=== PATIENT | female | born 1935 | race Caucasian/White ===

== ENCOUNTER 2023-01-13 18:04 | Inpatient (IN) ==
[2023-01-13] MEDS ORDERED: 0.9 % SODIUM CHLORIDE 1,000 ML IV ONE (18:36)
[2023-01-13] MEDS ORDERED: morphine 4 MG/ML VIAL IV ONE ×2 (18:36→19:44)
[2023-01-13] MEDS ORDERED: ONDANSETRON 4 MG/2 ML VIAL IV ONE (18:36)
[2023-01-13 19:24] LABS: POC Calcium, Ionized 1.2 (1.16-1.32); POC Creatinine 0.7 (0.6-1.2); POC Potassium 3.9 (3.3-5.1)
[2023-01-13 19:54] LABS: Basophils # (Auto) 0.03 K/mcL (0.00-0.30); Basophils % (Auto) 0.3 % (0.0-2.0); Eosinophils # (Auto) 0.04 K/mcL (0.00-0.70); Eosinophils % (Auto) 0.3 % (0.0-7.0); Hemoglobin 13.1 g/dL (11.2-15.7); Lymphocytes # (Auto) 0.84 K/mcL (1.50-4.80); Lymphocytes % (Auto) 7.3 % (15.5-49.0); Mean Cell Volume 94.1 fL (80.0-100.0); Mean Corpuscular HGB Conc 32.8 g/dL (31.0-36.0); Monocytes # (Auto) 0.71 K/mcL (0.10-0.90); Monocytes % (Auto) 6.2 % (1.0-12.0); Neutrophils % (Auto) 85.5 % (38.0-78.0); Platelet Count 263 K/mcL (140-440); RBC 4.25 M/mcL (3.59-5.38); Red Cell Distribution Width 13.6 % (11.5-14.5); WBC 11.5 K/mcL (4.5-11.0)
[2023-01-13 20:25] LABS: Appearance,Urine CLEAR (Clear); Bilirubin,Urine Negative (Negative); Color,Urine YELLOW; Culture Indicated,Urine No; Glucose,Urine (UA) Negative (Negative); Ketones,Urine Negative (Negative); Leukocyte Esterase,Urine Negative /uL (Negative); Nitrate,Urine Negative (Negative); Protein,Urine Negative (Negative); Specific Gravity,Urine 1.012 (1.000-1.035); Urine Blood Negative (Negative); Urobilinogen,Urine Negative
[2023-01-13] MEDS ORDERED: SENNOSIDES 1 TABLET PO PRN (20:53)
[2023-01-13] MEDS ORDERED: ACETAMINOPHEN 325 MG TABLET PO PRN (20:53)
[2023-01-13] MEDS ORDERED: POTASSIUM CHLORIDE 40 MEQ in DEXTROSE 5% IN WATER 500 ML IV PRN (20:53)
[2023-01-13] MEDS ORDERED: POLYETHYLENE GLYCOL 3350 17 GM PACKET PO PRN (20:53)
[2023-01-13] MEDS ORDERED: MAGNESIUM SULFATE 2 GM/50 ML BAG IV PRN (20:53)
[2023-01-13] MEDS ORDERED: POTASSIUM CHLORIDE 20 MEQ TABLET PO PRN ×2 (20:53)
[2023-01-13] MEDS ORDERED: ONDANSETRON 4 MG/2 ML VIAL IV PRN (20:53)
[2023-01-13] MEDS ORDERED: IPRATROPIUM/ALBUTEROL 3 ML AMPUL.NEB NEB PRN (20:53)
[2023-01-13] MEDS: DOCUSATE SODIUM 100 MG CAPSULE PO SCH (20:56)
[2023-01-13] MEDS ORDERED: HYDROcodone/APAP 5/325MG TABLET PO ONE (20:59)
[2023-01-13] MEDS ORDERED: ENALAPRILAT 1.25 MG/ML VIAL IV ONE (21:00)
[2023-01-13] MEDS: morphine 4 MG/ML VIAL IV PRN (21:05)
[2023-01-13] MEDS: 0.9 % SODIUM CHLORIDE 1,000 ML IV SCH ×2 (21:06→23:56)
[2023-01-13] MEDS: morphine 2 MG/ML VIAL ONE ×2 (21:07→22:39)
[2023-01-13] MEDS: ENALAPRILAT 1.25 MG/ML VIAL IV PRN (21:07)
[2023-01-13] MEDS: HYDROcodone/APAP 5/325MG TABLET PO PRN (21:08)
[2023-01-13] MEDS: 0.9 % SODIUM CHLORIDE 10 ML SYRINGE IV SCH (22:36)
[2023-01-14] MEDS: morphine 4 MG/ML VIAL IV PRN ×4 (02:07→20:34)
[2023-01-14] MEDS: 0.9 % SODIUM CHLORIDE 10 ML SYRINGE IV SCH ×3 (05:01→20:34)
[2023-01-14 07:12] LABS: Basophils # (Auto) 0.02 K/mcL (0.00-0.30); Basophils % (Auto) 0.3 % (0.0-2.0); Eosinophils # (Auto) 0.04 K/mcL (0.00-0.70); Eosinophils % (Auto) 0.6 % (0.0-7.0); Lymphocytes # (Auto) 1.22 K/mcL (1.50-4.80); Lymphocytes % (Auto) 16.8 % (15.5-49.0); Mean Cell Volume 99.7 fL (80.0-100.0); Mean Corpuscular HGB Conc 31.4 g/dL (31.0-36.0); Mean Platelet Volume 10.3 fL (8.8-12.5); Monocytes # (Auto) 0.98 K/mcL (0.10-0.90); Monocytes % (Auto) 13.5 % (1.0-12.0); Neutrophils % (Auto) 68.5 % (38.0-78.0); Platelet Count 224 K/mcL (140-440); RBC 3.51 M/mcL (3.59-5.38); Red Cell Distribution Width 14.1 % (11.5-14.5); WBC 7.3 K/mcL (4.5-11.0)
[2023-01-14 07:38] LABS: ALT/SGPT 12 U/L (<40); AST/SGOT 17 U/L (<32); Albumin 3.3 gm/dL (3.2-5.2); Albumin/Globulin Ratio 1.7 (1.0-2.3); Alkaline Phosphatase 68 U/L (39-117); Bilirubin,Direct < 0.2 mg/dL (0-0.3); Bilirubin,Total 0.3 mg/dL (0.1-1.0); Blood Urea Nitrogen 15 mg/dL (8-23); Carbon Dioxide 24 mmol/L (22-30); Chloride 110 mmol/L (96-108); Globulin 1.9 gm/dL (2.2-3.7); Glomerular Filtration Rate 82; Glucose 105 mg/dL (70-105); Lactate Dehydrogenase 164 U/L (135-225); Phosphorous 3.2 mg/dL (2.5-4.5); Triglycerides 61 mg/dL (<150); Uric Acid 3.5 mg/dL (2.5-8.0)
[2023-01-14] MEDS ORDERED: PROPOFOL 200 MG/20 ML VIAL IV ONE (07:54)
[2023-01-14] MEDS ORDERED: fentaNYL 100 MCG/2 ML VIAL IV ONE ×2 (07:54→09:41)
[2023-01-14] MEDS ORDERED: ROCURONIUM 10 MG/ML ML IV ONE (07:55)
[2023-01-14] MEDS ORDERED: ONDANSETRON 4 MG/2 ML VIAL ONE (08:15)
[2023-01-14] MEDS ORDERED: ceFAZolin 2 GM in DEXTROSE 5% IN WATER 50 ML IV SCH ×2 (08:30→09:30)
[2023-01-14] MEDS ORDERED: SCOPOLAMINE 1 PATCH PATCH TOPICAL PRN (08:30)
[2023-01-14] MEDS ORDERED: TRANEXAMIC ACID 1,000 MG/10 ML VIAL ONE (08:55)
[2023-01-14] MEDS ORDERED: SUGAMMADEX SODIUM 200 MG/2 ML VIAL IV ONE (09:08)
[2023-01-14] MEDS ORDERED: GLYCOPYRROLATE 0.2 MG/ML VIAL IV ONE (09:08)
[2023-01-14] MEDS ORDERED: METHOCARBAMOL 1,000 MG/10 ML VIAL IV PRN (09:13)
[2023-01-14] MEDS ORDERED: fentaNYL 100 MCG/2 ML VIAL IV PRN (09:13)
[2023-01-14] MEDS ORDERED: LABETALOL 5 MG/ML ML IV PRN (09:13)
[2023-01-14] MEDS ORDERED: HYDROmorphone 0.5 MG/0.5 ML SYRINGE IV PRN (09:13)
[2023-01-14] MEDS ORDERED: ACETAMINOPHEN 1,000 MG/100 ML BAG IV ONE (09:13)
[2023-01-14] MEDS ORDERED: ONDANSETRON 4 MG/2 ML VIAL IV PRN (09:13)
[2023-01-14] MEDS ORDERED: NALOXONE HCL 0.4 MG/ML VIAL IV PRN (09:13)
[2023-01-14] MEDS ORDERED: IPRATROPIUM/ALBUTEROL 3 ML AMPUL.NEB NEB PRN (09:13)
[2023-01-14] MEDS ORDERED: FLEETS ADULT ENEMA PR PRN (09:20)
[2023-01-14] MEDS ORDERED: BENZOCAINE/MENTHOL 1 LOZENGE PO PRN (09:20)
[2023-01-14] MEDS ORDERED: BISACODYL 10 MG SUPP.RECT PR PRN (09:20)
[2023-01-14] MEDS ORDERED: DEXMEDETOMIDINE HCL 200 MCG/2 ML VIAL ONE (10:12)
[2023-01-14] MEDS: 0.9 % SODIUM CHLORIDE 1,000 ML IV SCH (12:19)
[2023-01-14] MEDS: DOCUSATE SODIUM 100 MG CAPSULE PO SCH ×2 (12:19→20:34)
[2023-01-14] MEDS: LEVOTHYROXINE 100 MCG TABLET PO SCH (12:19)
[2023-01-14] MEDS: SERTRALINE 100 MG TABLET PO SCH (12:19)
[2023-01-14] MEDS: ceFAZolin 1 GM VIAL IV SCH (15:20)
[2023-01-15] MEDS ORDERED: OLANZapine 5 MG TABLET PO PRN (00:02)
[2023-01-15] MEDS: ceFAZolin 1 GM VIAL IV SCH (00:08)
[2023-01-15] MEDS ORDERED: OLANZapine 2.5 MG TABLET PO ONE ×2 (01:18→01:23)
[2023-01-15] MEDS: morphine 4 MG/ML VIAL IV PRN ×3 (01:30→20:45)
[2023-01-15] MEDS: 0.9 % SODIUM CHLORIDE 1,000 ML IV SCH ×2 (01:38→16:19)
[2023-01-15] MEDS: 0.9 % SODIUM CHLORIDE 10 ML SYRINGE IV SCH ×2 (06:08→12:57)
[2023-01-15] MEDS: LEVOTHYROXINE 100 MCG TABLET PO SCH (07:34)
[2023-01-15] MEDS ORDERED: ENOXAPARIN 30 MG/0.3 ML SYRINGE SQ SCH (09:00)
[2023-01-15] MEDS: SERTRALINE 100 MG TABLET PO SCH (09:11)
[2023-01-15] MEDS: DOCUSATE SODIUM 100 MG CAPSULE PO SCH ×2 (09:12→20:46)
[2023-01-15] MEDS: ENOXAPARIN 40 MG/0.4 ML SYRINGE SQ SCH (09:15)
[2023-01-15] MEDS: HYDROcodone/APAP 5/325MG TABLET PO PRN (09:20)
[2023-01-15] MEDS ORDERED: PNEUMOCOCCAL 23-VAL P-SAC VAC 0.5 ML SYRINGE IM ONE (10:00)
[2023-01-15] MEDS: ENALAPRILAT 1.25 MG/ML VIAL IV PRN ×2 (16:15→21:02)
[2023-01-16] MEDS: 0.9 % SODIUM CHLORIDE 10 ML SYRINGE IV SCH ×2 (01:18→07:52)
[2023-01-16] MEDS: 0.9 % SODIUM CHLORIDE 1,000 ML IV SCH (07:52)
[2023-01-16] MEDS: HYDROcodone/APAP 5/325MG TABLET PO PRN (07:53)
[2023-01-16] MEDS: LEVOTHYROXINE 100 MCG TABLET PO SCH (07:53)
[2023-01-16] MEDS: ENALAPRILAT 1.25 MG/ML VIAL IV PRN (07:55)
[2023-01-16] MEDS: SERTRALINE 100 MG TABLET PO SCH (08:51)
[2023-01-16] MEDS: DOCUSATE SODIUM 100 MG CAPSULE PO SCH (08:52)
[2023-01-16] MEDS: ENOXAPARIN 40 MG/0.4 ML SYRINGE SQ SCH (08:52)
[2023-01-16] MEDS ORDERED: LOSARTAN 50 MG TABLET PO SCH (09:00)
[2023-01-16 09:17] LABS: Hematocrit 31.9 % (34.1-44.9); Hemoglobin 10.4 g/dL (11.2-15.7)
== END 2023-01-16 13:50 | DRG 482 ==
LOC: ED 18:04 → MEDSUR 20:32
PROVIDERS: ADMIT Internal Medicine; ATTEND Internal Medicine

== ENCOUNTER 2024-12-20 10:41 | Inpatient (IN) ==
[2024-12-20 14:39] LABS: ALT/SGPT 11 U/L (<40); AST/SGOT 23 U/L (<32); Albumin 3.9 gm/dL (3.2-5.2); Albumin/Globulin Ratio 1.6 (1.0-2.3); Alkaline Phosphatase 97 U/L (39-117); Anion Gap 11.0 (8.0-16.0); Bilirubin,Total 0.6 mg/dL (0.1-1.0); Blood Urea Nitrogen 18 mg/dL (8-23); Calcium 9.0 mg/dL (8.6-10.4); Carbon Dioxide 22 mmol/L (22-30); Chloride 106 mmol/L (96-108); Globulin 2.5 gm/dL (2.2-3.7); Glucose 112 mg/dL (70-105); Potassium 4.0 mmol/L (3.3-5.1); Sodium 139 mmol/L (133-145)
[2024-12-20 14:44] LABS: Basophils # (Auto) 0.03 K/mcL (0.00-0.30); Basophils % (Auto) 0.3 % (0.0-2.0); Eosinophils # (Auto) 0.04 K/mcL (0.00-0.70); Eosinophils % (Auto) 0.4 % (0.0-7.0); Hematocrit 42.7 % (34.1-44.9); Hemoglobin 14.0 g/dL (11.2-15.7); Lymphocytes # (Auto) 0.62 K/mcL (1.50-4.80); Lymphocytes % (Auto) 5.9 % (15.5-49.0); Mean Corpuscular HGB Conc 32.8 g/dL (31.0-36.0); Monocytes # (Auto) 0.77 K/mcL (0.10-0.90); Monocytes % (Auto) 7.4 % (1.0-12.0); Neutrophils % (Auto) 85.8 % (38.0-78.0); Platelet Count 208 K/mcL (140-440); RBC 4.48 M/mcL (3.59-5.38); WBC 10.4 K/mcL (4.5-11.0)
[2024-12-20] MEDS ORDERED: ONDANSETRON 4 MG/2 ML VIAL IV PRN (17:24)
[2024-12-20] MEDS: ACETAMINOPHEN 1,000 MG/100 ML BAG IV SCH (18:29)
[2024-12-20] MEDS: cefTRIAXone 1 GM VIAL IV SCH (18:30)
[2024-12-20] MEDS: SENNOSIDES 1 TABLET PO SCH (20:38)
[2024-12-20] MEDS: 0.9 % SODIUM CHLORIDE 10 ML SYRINGE IV SCH (20:39)
[2024-12-21] MEDS ORDERED: NON FORMULARY MEDICATION 1 DOSE MISCELL (Losartan 100 mg tablet) SCH (08:00)
[2024-12-21] MEDS: LOSARTAN 50 MG TABLET PO SCH (08:13)
[2024-12-21] MEDS: ASPIRIN 81 MG TAB.CHEW PO SCH (08:13)
[2024-12-21] MEDS: LEVOTHYROXINE 100 MCG TABLET PO SCH (08:13)
[2024-12-21] MEDS: ENOXAPARIN 40 MG/0.4 ML SYRINGE SQ SCH (08:14)
[2024-12-21] MEDS: SERTRALINE 100 MG TABLET PO SCH (08:14)
[2024-12-21] MEDS: FOSFOMYCIN TROMETHAMINE 3 GM PACKET PO ONE (10:37)
[2024-12-21] MEDS: KETOROLAC 15 MG/ML VIAL IV PRN (18:48)
[2024-12-22] MEDS: diphenhydrAMINE 50 MG/ML VIAL IV PRN (22:12)
[2024-12-22] MEDS: diphenhydrAMINE 50 MG/ML VIAL ONE (22:12)
[2024-12-22] MEDS: METHOCARBAMOL 500 MG TABLET PO PRN (23:19)
[2024-12-22] MEDS: KETOROLAC 15 MG/ML VIAL IV SCH (23:23)
[2024-12-22] MEDS: KETOROLAC 15 MG/ML VIAL ONE (23:26)
[2024-12-23] MEDS: KETOROLAC 15 MG/ML VIAL ONE (05:41)
[2024-12-23] MEDS: ACETAMINOPHEN 500 MG TABLET PO SCH (09:25)
[2024-12-23] MEDS: POLYETHYLENE GLYCOL 3350 17 GM PACKET PO PRN (09:39)
[2024-12-23] MEDS: NAPROXEN 250 MG TABLET PO SCH (09:40)
[2024-12-23 11:58] VITALS: TEMP 98.8; O2SAT 97
== END 2024-12-23 11:50 | DRG 552 ==
LOC: ED 10:41 → MEDSUR 17:15
PROVIDERS: ADMIT Internal Medicine; ATTEND Internal Medicine